=== PATIENT | female | born 1985 | race Hispanic/Latino ===

== ENCOUNTER 2022-07-25 07:20 | Inpatient (IN) | payer BC ==
[2022-07-11 16:50] VITALS: BP 111/64
[~2022-07-25] VITALS: Ht 167.6 cm; Wt 75.5 kg
--- NOTE | ~2022-07-25 | OR ---
[facility] [address] [place], [place] [address] Draft DATE OF OPERATION: 07/25/2022 SURGEON: Hiwot Cowan MD MIND READER: Chandler Benson MD. PREOPERATIVE DIAGNOSES: Eighteen week , large right ovarian mass, probable dermoid. POSTOPERATIVE DIAGNOSIS: Eighteen week , large right ovarian mass, probable dermoid. PROCEDURE: Laparotomy with right salpingo-oophorectomy. ANESTHESIA: General ET. ESTIMATED BLOOD LOSS: 25 mL. DRAINS: Cooper catheter. INDICATIONS AND FINDINGS: The patient is a 37-year-old female was noted to have a very large right ovarian tumor at her 1st OB visit. This measured approximately 20 cm and was consistent with a dermoid. Because of the size of the mass, it was felt advisable to remove this during the . A 2nd trimester was felt to be the best time for removal. At the time of surgery, the mass was palpable abdominally and was at the umbilicus on the patient's right side. The uterus was pushed off to the left and otherwise appeared normal. The ovary was quite large and irregular in shape, but smooth over the surface. It did extend into the cul-de-sac. The patient's left ovary appeared somewhat multi cystic with a few adhesions of the omentum to this area, but otherwise appeared normal. It was not disturbed. DESCRIPTION OF PROCEDURE: The patient was prepped and draped in the supine position. A midline incision was made from the pubic symphysis to just above the umbilicus. The subcu was divided with the PATIENT NAME: GEORGE HURTADO OPERATIVE REPORT DATE OF : 85 REPORT #: [id number] PHYSICIAN: HIWOT COWAN MD PCP: NO PRIMARY CARE PHYSICIAN REPORT IS CONFIDENTIAL AND NOT TO BE RELEASED WITHOUT AUTHORIZATION [facility] [address] [place], [place] [address] Draft cautery to the fascia. The fascial incision was extended vertically. The muscles were already and the peritoneum was identified and entered and the incision extended superiorly and inferiorly. Following this, the mass could be identified, but it could not be elevated out of the pelvis easily. The peritoneum overlying the ovary was incised. This was part of the broad ligament, which allowed some freedom. The infundibulopelvic ligament was identified and isolated. It was grasped with curved Z clamps x2 and divided. A free tie of 0 Vicryl followed by suture ligature, 0 Vicryl was then placed on the infundibulopelvic ligament. This allowed more freedom of movement on the lateral aspect of the ovary. The utero-ovarian pedicle was also identified. It was very large with a quite large vessels. The free area was identified and it was triply clamped with curved Z clamps. Each of these were free tied followed by suture ligatures to assure hemostasis, giving the large amount of vessels. Following this, the ovary could be elevated out of the pelvis and the ovary could be removed, as there appeared to only just be a small amount of filmy broad ligament, keeping it in place. This was divided and a free tie of 0 Vicryl was placed. The specimen was then excised. There was a defect on the pelvic sidewall and this was observed and there was some light bleeding. This was controlled with cautery superficially. The abdomen was irrigated and inspected and good hemostasis was noted. The ureter was identified easily on the patient's right side and was clear of the surgical site. There was no bleeding on the uterine side. Everything was done to avoid too much manipulation of the uterus to avoid disturbing the . Following this, the peritoneum was identified and was closed with a running suture of 3-0 Vicryl. The fascia was closed from each end to the midline with a running suture of 0 PDS. The subcu was irrigated and bleeding points controlled with cautery. The skin edges were reapproximated with interrupted sutures of 3-0 Vicryl. The skin was closed with adali. All sponge and needle counts were correct. She tolerated procedure very well and was taken to the recovery room in good condition. Hiwot Cowan MD PJW/MODL /[id number] cc: Chandler Benson MD Copies: CHANDLER BENSON MD PATIENT NAME: GEORGE HURTADO OPERATIVE REPORT DATE OF : 85 REPORT #: [id number] PHYSICIAN: HIWOT COWAN MD PCP: NO PRIMARY CARE PHYSICIAN REPORT IS CONFIDENTIAL AND NOT TO BE RELEASED WITHOUT AUTHORIZATION [address] [address] Draft ~ PATIENT NAME: GEORGE HURTADO OPERATIVE REPORT DATE OF : 85 REPORT #: [id number] PHYSICIAN: HIWOT COWAN MD PCP: NO PRIMARY CARE PHYSICIAN REPORT IS CONFIDENTIAL AND NOT TO BE RELEASED WITHOUT AUTHORIZATION
[2022-07-25 07:44] VITALS: BP 116/65
--- NOTE | 2022-07-25 08:44 | NUR ---
0800: FHT'S AUDIBLE 140'S WITH DOPPLER
--- NOTE | 2022-07-25 14:13 | NUR ---
07/25/22 1413 Jada Allen 1407-PATIENT ARRIVED TO PACU ON 6L MASK RR EVEN NONAROUSABLE. MID LINE INCISION CDI. SR. IVF INFUSING.
--- NOTE | 2022-07-25 23:07 | NUR ---
Pt called nurse's station for beeping IV pump, New bag of LR hung. Pt resting in bed, states no further needs at this time.
--- NOTE | 2022-07-26 07:50 | PR ---
[facility] [address] [place] [address] Signed AP Progress Notes Datetime Report Generated by CPN: 07/26/2022 07:50 Chief Complaint: Very little discomfort. Denies nausea. Reports flatus. Reports GFM. Denies contractions, bleeding. PHYSICAL EXAM: [id number] General: Normal Cardiovascular: Normal Respiratory: Normal Abdomen: Abnormal Extremities: Normal Physical Exam Comments: Abdomen with active BS, fundus soft, nontender. Incision clean and intact. H/H 10.6/32.3, WBC 15.1, plat 184k Impression: 37 yo female who is doing well following lap for RSO. No evidence of labor. Plan: Increase ambulation Shower Stop IV fluids VITAL SIGNS: [id number] EXAM: [id number] MEMBRANES: [id number] FETUS A: [id number] FETUS B: [id number] PROGRESS NOTES: [id number] Signing Physician: Hiwot Cowan MD Copies: ~ *Electronically Signed* 07/26/22 0750 HIWOT COWAN MD PATIENT NAME: GEORGE HURTADO PROGRESS NOTE DATE OF : 85 PHYSICIAN: HIWOT COWAN MD RPT #: [id number] REPORT IS CONFIDENTIAL AND NOT TO BE RELEASED WITHOUT AUTHORIZATION
--- NOTE | 2022-07-27 08:14 | PR ---
[facility] [address] [place], [place] [address] Signed AP Progress Notes Datetime Report Generated by CPN: 07/27/2022 08:14 Chief Complaint: Pain manageable so far. Has been up and showered last pm and voiding well. She has passed gas but no BM yet. PHYSICAL EXAM: [id number] General: Normal Cardiovascular: Normal Respiratory: Normal Abdomen: Normal Extremities: Normal Physical Exam Comments: Abdomen with active BS. Uterus soft, nontender. Incision clean and intact. Impression: Doing well. She is ready for D/C. Plan: D/C home Lt activity Call for worsening pain, temp >100.5, vag bleeding/cramping Meds: Tylenol 1000 mg q 8 hr, Oxycodone 5 mg #12, Sennakot S #50 Staple removal Mon VITAL SIGNS: [id number] EXAM: [id number] MEMBRANES: [id number] FETUS A: [id number] FETUS B: [id number] PROGRESS NOTES: [id number] Signing Physician: Hiwot Cowan MD Copies: ~ *Electronically Signed* 07/27/22813 HIWOT COWAN MD PATIENT NAME: GEORGE HURTADO PROGRESS NOTE DATE OF : 85 PHYSICIAN: HIWOT COWAN MD RPT #: [id number] REPORT IS CONFIDENTIAL AND NOT TO BE RELEASED WITHOUT AUTHORIZATION
--- NOTE | 2022-07-27 09:11 | NUR ---
MORNING ASSESSMENT COMPLETED AND VS OBTAINED. DR MCCONNELL AT BEDSIDE AT 0800 ASSESSING PT AND DISCUSSING DISCHARGE. PT DENIES NEEDS. SEE [facility] FOR FURTHER NOTES.
[2022-07-27 10:11] VITALS: BP 107/60
--- NOTE | 2022-07-27 18:02 | PATH ---
[facility] [address] [facility] [place], [place] [address] Signed SPECIMEN(S): A RIGHT OVARY AND TUMOR SPECIMEN SOURCE: A. RIGHT OVARY AND TUMOR CLINICAL HISTORY: Neoplasm of right ovary. Probable teratoma. Patient is 20 weeks gestation. 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 - Fallopian tube within normal limits. TWK:[facility]:C2NR MICROSCOPIC EXAMINATION: Histologic sections of all submitted blocks are examined by light microscopy. These findings, together with the gross examination, support the pathologic diagnosis. GROSS DESCRIPTION: The specimen, labeled and designated "Hever Lanier," and designated on the requisition "right ovary and tumor," is received in formalin and consists of an intact cystic ovary (1322 g, 32.2 x 10.4 x 9.1 cm) with attached fimbriated fallopian tube segment (8.4 cm in length x 0.8 cm in diameter). The fallopian tube is serially sectioned to reveal a mccartney-pink, soft cut surface. The fimbria are submitted entirely. The ovary is inked blue and opened to reveal yellow-mccartney grumous material, yellow-mccartney fatty tissue, mccartney-pink soft tissue, blonde and brown hair, red-brown soft tissue, fragments of bone and 12 teeth. General Production Manager sections are submitted. Cassette Summary: (A1) Fallopian tube (A2-A6) Ovary/cyst AC (under the direct supervision of a pathologist) The Gross Description was prepared using a voice recognition system. The report was reviewed for accuracy; however, sound-alike word errors, addition and/or deletions may occur. If there is any question about this report, please contact Client Services. PERFORMING LABORATORY: PATIENT NAME: GEORGE LANIER PATHOLOGY DATE OF : 85 REPORT #: [id number] PHYSICIAN: [facility] PCP: NO PRIMARY CARE PHYSICIAN REPORT IS CONFIDENTIAL AND NOT TO BE RELEASED WITHOUT AUTHORIZATION [facility] [address] [facility] [place], [place] [address] Signed The technical component was performed by [facility], [address] [place] [address] (CLIA# [id number]). The professional interpretation was performed by [facility], [facility], [address] [place] [id number] (CLIA#: [id number]). Diagnostician: Lawrence Lott MD Pathologist Electronically Signed 07/27/2022 Copies: ~ PATIENT NAME: GEORGE LANIER PATHOLOGY DATE OF : 85 REPORT #: [id number] PHYSICIAN: [facility] PCP: NO PRIMARY CARE PHYSICIAN REPORT IS CONFIDENTIAL AND NOT TO BE RELEASED WITHOUT AUTHORIZATION
== END 2022-07-27 09:45 | disposition home or self-care (01) | DRG 819 ==
LOC: DS 07:20 → EDSTATUS 09:30 → FBC 13:10 → DS 14:17 → FBC 14:17
PROVIDERS: ADMIT Obstetrics & Gynecology; ATTEND Obstetrics & Gynecology
PROC: 0UT00ZZ Resection of Right Ovary, Open Approach (ICD-10-PCS; 2022-07-25)
PROC: 0UT50ZZ Resection of Right Fallopian Tube, Open Approach (ICD-10-PCS; principal; 2022-07-25 09:30)
DX: O34.82 Maternal care for other abnormalities of pelvic organs, second trimester (principal); D27.0 Benign neoplasm of right ovary; Z3A.18 18 weeks gestation of pregnancy
CPT/HCPCS: 00840; 36415; 76942; 85025; A9270; J0131; J0690; J1100; J1644; J2001; J2300; J2405; J2704; J2765; J2795; J7121

== ENCOUNTER 2022-12-05 11:15 | Inpatient (IN) | payer BC ==
[~2022-12-05] VITALS: Ht 165.1 cm; Wt 92.1 kg
--- OUTSIDE RECORDS SUMMARY | ~2022-12-05 | XMS | Continuity of Care Document ---
Demographics + + + | Address | [address] | | | [place] [address] | + + + | Preferred Language | Unknown | + + + | Marital Status | | + + + | Pentecostal Affiliation | Unknown | + + + | Race | Unknown | + + + | Ethnic Group | Not or | + + + Author + + + | Author | [facility] | + + + | Organization | [facility] | + + + | Address | [address] | | | [place] [address] | + + + | Phone | | + + + Care Team Providers + + + + | Care Sustainable Development Policy Analyst Name | Role | Phone | + + + + Unavailable | Unavailable | + + + + Unavailable | Unavailable | + + + + Unavailable | Unavailable | + + + + Allergies and Intolerances + + + + + + | date | description | facility | reaction | severity | + + + + + + | (no date) | No Known | [facility] | (no reaction) | (no severity) | | | Allergies | | | | + + + + + + Encounters No information. Functional Status No information. Immunizations No information. Medications No information. Problems + + + + | date | description | facility | + + + + | 2022-05-14 16:56 | ENCNTR FOR SUPRVSN OF | [facility] | | | NORMAL FIRST PREG, FIRST | | | | TRIMESTER | | + + + + | 2022-05-14 16:56 | LESS THAN 8 WEEKS | [facility] | | | GESTATION OF | | + + + + | 2022-07-11 16:33 | BENIGN NEOPLASM OF RIGHT | [facility] | | | OVARY | | + + + + | 2022-07-11 16:33 | ENCOUNTER FOR | [facility] | | | PREPROCEDURAL LABORATORY | | | | EXAMINATION | | + + + + | 2022-07-17 13:03 | BENIGN NEOPLASM OF RIGHT | [facility] | | | OVARY | | + + + + | 2022-07-17 13:03 | SUPERVISION OF OTHER HIGH | [facility] | | | RISK PREGNANCIES, SECOND | | | | TRIMESTER | | + + + + | 2022-07-17 13:03 | SUPERVISION OF OTHER HIGH | [facility] | | | RISK PREGNANCI | | + + + + | 2022-07-17 13:03 | 18 WEEKS GESTATION OF | [facility] | | | | | + + + + | 2022-07-25 14:17 | BENIGN NEOPLASM OF RIGHT | [facility] | | | OVARY | | + + + + | 2022-07-25 14:17 | MATERNAL CARE FOR OTH | [facility] | | | ABNLT OF PELVIC ORGANS, | | | | SECO | | + + + + | 2022-07-25 14:17 | 18 WEEKS GESTATION OF | [facility] | | | | | + + + + | 2022-07-27 00:00 | Status post unilateral | [facility] | | | salpingo-oophorectomy | | + + + + | 2022-08-08 11:52 | BENIGN NEOPLASM OF RIGHT | [facility] | | | OVARY | | + + + + | 2022-08-08 11:52 | SUPERVISION OF OTHER HIGH | [facility] | | | RISK PREGNANCIES, UNSP T | | + + + + | 2022-08-08 11:52 | MATERNAL CARE FOR OTH | [facility] | | | ABNLT OF PELVIC ORGANS, | | | | UNSP TRIMESTER | | + + + + Procedures + + + + | date | description | facility | + + + + | 2022-07-25 00:00 | Laparotomy | [facility] | + + + + | 2022-07-25 00:00 | Laparotomy | [facility] | + + + + Results/Labs +--------+--------+ +---------+--------+---------+ | test | date | facility | value | unit | notes | +--------+--------+ +---------+--------+---------+ + + | Result panel 1 | + + + + + +-------+---------+ + | | 2022-07-11 | [facility] | 111 | mg/dL | (missing) | | (unavailable | [facility] | | | + + + +-------+---------+ + + + | Result panel 2 | + + + + + +--------+ + + | | 2022-07-11 | [facility] | 14.3 | (missing) | (missing) | | (unavailable [facility] | | | | + + + +--------+ + + + + | Result panel 3 | + + + + + +-------+---------+ + | | 2022-07-11 | [facility] | 8.5 | mg/dL | (missing) | | (unavailable | [facility] | | | | + + + +-------+---------+ + + + | Result panel 4 | + + + + + +-------+ + + | | 2022-07-11 | [facility] | 7.0 | (missing) | (missing) | | (unavailable | [facility] | | | | + + + +-------+ + + + + | Result panel 5 | + + + + + +-------+ + + | | 2022-07-11 | [facility] | 3.1 | (missing) | (missing) | | (unavailable [facility] | | | | + + + +-------+ + + + + | Result panel 6 | + + + + + +-------+ + + | | 2022-07-11 | [facility] | 3.9 | (missing) | (missing) | | (unavailable | [facility] | | | | + + + +-------+ + + + + | Result panel 7 | + + + + + +--------+ + + | | 2022-07-11 | [facility] | 0.79 | (missing) | (missing) | | (unavailable | [facility] | | | | + + + +--------+ + + + + | Result panel 8 | + + + + + +-------+ + + | | 2022-07-11 | [facility] | 0.1 | (missing) | (missing) | | (unavailable | [facility] | | | | + + + +-------+ + + + + | Result panel 9 | + + + + + +------+ + + | | 2022-07-11 | [facility] | 16 | (missing) | (missing) | | (unavailable | [facility] | | | | + + + +------+ + + + + | Result panel 10 | + + + + + +------+ + + | | 2022-07-11 | [facility] | 15 | (missing) | (missing) | | (unavailable | [facility] | | | | + + + +------+ + + + + | Result panel 11 | + + + + + +------+ + + | | 2022-07-11 | [facility] | 44 | (missing) | (missing) | | (unavailable | [facility] | | | | + + + +------+ + + + + | Result panel 12 | + + + + + +------+---------+ + | | 2022-07-11 | [facility] | 16 | mg/dL | (missing) | | (unavailable | [facility] | | | | + + + +------+---------+ + + + | Result panel 13 | + + + + + +--------+---------+ + | | 2022-07-11 | [facility] | 0.61 | mg/dL | (missing) | | (unavailable | [facility] | | | | + + + +--------+---------+ + + + | Result panel 14 | + + + + + +-------+ + + | | 2022-07-11 | [facility] | 118 | (missing) | (missing) | | (unavailable | [facility] | | | | + + + +-------+ + + + + | Result panel 15 | + + + + + +---------+ + + | | 2022-07-11 | [facility] | 26.22 | (missing) | (missing) | | (unavailable | [facility] | | | | + + + +---------+ + + + + | Result panel 16 | + + + + + +-------+ + + | | 2022-07-11 | [facility] | 138 | (missing) | (missing) | | (unavailable | [facility] | | | | + + + +-------+ + + + + | Result panel 17 | + + + + + +-------+ + + | | 2022-07-11 | [facility] | 3.3 | (missing) | (missing) | | (unavailable | [facility] | | | | + + + +-------+ + + + + | Result panel 18 | + + + + + +-------+ + + | | 2022-07-11 | [facility] | 103 | (missing) | (missing) | | (unavailable | [facility] | | | | + + + +-------+ + + + + | Result panel 19 | + + + + + +------+ + + | | 2022-07-11 | [facility] | 24 | (missing) | (missing) | | (unavailable | [facility] | | | | + + + +------+ + + + + | Result panel 20 | + + + + + +--------+ + + | | 2022-07-26 | [facility] | 15.1 | (missing) | (missing) | | (unavailable | [facility] | | | | + + + +--------+ + + + + | Result panel 21 | + + + + + +--------+ + + | | 2022-07-26 | [facility] | 3.86 | (missing) | (missing) | | (unavailable | [facility] | | | | + + + +--------+ + + + + | Result panel 22 | + + + + + +--------+ + + | | 2022-07-26 | [facility] | 10.6 | (missing) | (missing) | | (unavailable | [facility] | | | | + + + +--------+ + + + + | Result panel 23 | + + + + + +--------+ + + | | 2022-07-26 | [facility] | 32.3 | (missing) | (missing) | | (unavailable | [facility] | | | | + + + +--------+ + + + + | Result panel 24 | + + + + + +--------+ + + | | 2022-07-26 | [facility] | 83.6 | (missing) | (missing) | | (unavailable | [facility] | | | | + + + +--------+ + + + + | Result panel 25 | + + + + + +--------+ + + | | 2022-07-26 | [facility] | 27.4 | (missing) | (missing) | | (unavailable | [facility] | | | | + + + +--------+ + + + + | Result panel 26 | + + + + + +--------+ + + | | 2022-07-26 | [facility] | 32.7 | (missing) | (missing) | | (unavailable | [facility] | | | | + + + +--------+ + + + + | Result panel 27 | + + + + + +--------+ + + | | 2022-07-26 | [facility] | 15.0 | (missing) | (missing) | | (unavailable | [facility] | | | | + + + +--------+ + + + + | Result panel 28 | + + + + + +-------+ + + | | 2022-07-26 | [facility] | 184 | (missing) | (missing) | | (unavailable | [facility]30[facility] | | | | + + + +-------+ + + + + | Result panel 29 | + + + + + +--------+ + + | | 2022-07-26 | [facility] | 83.8 | (missing) | (missing) | | (unavailable | [facility] | | | | + + + +--------+ + + + + | Result panel 30 | + + + + + +-------+ + + | | 2022-07-26 | [facility] | 9.9 | (missing) | (missing) | | (unavailable | [facility] | | | | + + + +-------+ + + + + | Result panel 31 | + + + + + +-------+ + + | | 2022-07-26 | [facility] | 6.0 | (missing) | (missing) | | (unavailable | [facility] | | | | + + + +-------+ + + + + | Result panel 32 | + + + + + +-------+ + + | | 2022-07-26 | [facility] | 0.0 | (missing) | (missing) | | (unavailable | [facility] | | | | + + + +-------+ + + + + | Result panel 33 | + + + + + +-------+ + + | | 2022-07-26 | [facility] | 0.3 | (missing) | (missing) | | (unavailable | [facility] | | | | + + + +-------+ + + Social History + + + + | date | description | facility | + + + + | 2022-07-27 00:00 | Unknown if ever smoked | [facility] | + + + + Vital Signs + + + +---------+ | date | measurement | value | units | + + + +---------+ | 2022-07-11 00:00 | BMI | 26.8 | kg/m2 | + + + +---------+ | 2022-07-11 00:00 | height_metric | 167.64 | cm | + + + +---------+ | 2022-07-11 00:00 | height_standard | 66 | in | + + + +---------+ | 2022-07-11 00:00 | weight_metric | 75.45 | kg | + + + +---------+ | 2022-07-11 00:00 | weight_standard | 166.34 | lb | + + + +---------+ | 2022-07-25 00:00 | BP_diastolic | 53 | mmHg | + + + +---------+ | 2022-07-25 00:00 | BP_systolic | 95 | mmHg | + + + +---------+ | 2022-07-25 00:00 | heart_rate | 70 | /min | + + + +---------+ | 2022-07-25 00:00 | o2_saturation | 97 | % | + + + +---------+ | 2022-07-25 00:00 | respiration_rate | 16 | /min | + + + +---------+ | 2022-07-25 00:00 | temperature_metric | 36.28 | C | | | | | | + + + +---------+ | 2022-07-25 00:00 | | 97.3 | F | | | temperature_standar | | | | | d | | | + + + +---------+"
[2022-12-05 12:01] LABS: MARIJUANA (THC), UR NEGATIVE (NEGATIVE)
[2022-12-05 12:02] LABS: AMPHETAMINES, UR NEGATIVE (NEGATIVE); BARBITURATES, UR NEGATIVE (NEGATIVE); BENZODIAZEPINES, UR NEGATIVE (NEGATIVE); BUPRENORPHINE,UR NEGATIVE (NEGATIVE); COCAINE, UR NEGATIVE (NEGATIVE); MDMA, UR NEGATIVE (NEGATIVE); METHADONE, UR NEGATIVE (NEGATIVE); METHAMPHETAMINE, UR NEGATIVE (NEGATIVE); OPIATES, UR NEGATIVE (NEGATIVE); OXYCODONE, UR NEGATIVE (NEGATIVE); PHENCYCLIDINE, UR NEGATIVE (NEGATIVE); TRICYCLIC ANTIDEPRESSANT, UR NEGATIVE (NEGATIVE)
[2022-12-05 12:17] LABS: HEMATOCRIT 35.5 % (35.0-50.0); HEMOGLOBIN 11.5 g/dL (12.0-18.0); MCH 25.7 (27-36); MCHC 32.3 g/dl (30-36); MCV 79.6 fl (81-99); RBC 4.46 M/ul (4.3-5.7); RDW 15.3 (10.5-15.0)
[2022-12-05 13:04] LABS: ABO A; ANTIBODY SCREEN NEGATIVE; RH POSITIVE
--- NOTE | 2022-12-05 18:09 | PR ---
[facility] [address] [facility] [place], [place] [address] Signed Progress Notes IP Datetime Report Generated by CPN: 12/05/2022 18:09 PROGRESS NOTES: [id number] Impression: Reassuring Heart Rate Procedures: Sterile Vag Exam Plan: Continue Present Management VITAL SIGNS: [id number] Vital Signs: Reviewed; Within Normal Limits EXAM: [id number] Effacement: 0 Station: -3 Contractions: occ MEMBRANES: [id number] Amniotic Fluid Color: Clear Comments: Starting to feel some contractions. She has made a little change. Will continue with pitocin. FETUS A: [id number] FHR Baseline: 130 Variability: Moderate 6-25bpm Accelerations: 15X15 Decelerations: None FHR Category: Category I Presentation: Vertex FETUS B: [id number] Signing Physician: Hiwot Cowan MD Copies: ~ *Electronically Signed* 12/05/22 1809 HIWOT COWAN MD PATIENT NAME: GEORGE CAST PROGRESS NOTE DATE OF : 85 PHYSICIAN: HIWOT COWAN MD RPT #: [id number] REPORT IS CONFIDENTIAL AND NOT TO BE RELEASED WITHOUT AUTHORIZATION
--- NOTE | 2022-12-06 06:58 | PR ---
[facility] [address] [facility] [place], [place] [address] Signed Progress Notes IP Datetime Report Generated by CPN: 12/06/2022 06:58 PROGRESS NOTES: [id number] Impression: Normal Progression of Labor; Reassuring Heart Rate Procedures: Intrauterine Pressure Catheter; Sterile Vag Exam Plan: Continue Present Management VITAL SIGNS: [id number] Vital Signs: Reviewed; Within Normal Limits EXAM: [id number] Dilatation: 3.0 Effacement: 90 Station: -2 Contractions: occ MEMBRANES: [id number] Amniotic Fluid Color: Clear Comments: Progressing though slowly. status reassuring though she did have a decel almost 1 hr ago. Nothing has been seen since placement of the IUPC. There is no evidence of infection at this time. FETUS A: [id number] FHR Baseline: 130 Variability: Moderate 6-25bpm Accelerations: 15X15 Decelerations: None FHR Category: Category I Presentation: Vertex FETUS B: [id number] Signing Physician: Hiwot Cowan MD Copies: ~ *Electronically Signed* 12/06/22 0658 HIWOT COWAN MD PATIENT NAME: GEORGE CAST PROGRESS NOTE DATE OF : 85 PHYSICIAN: HIWOT COWAN MD RPT #: [id number] REPORT IS CONFIDENTIAL AND NOT TO BE RELEASED WITHOUT AUTHORIZATION
[2022-12-07 05:34] LABS: HEMOGLOBIN 9.8 g/dL (12.0-18.0)
[2022-12-07 05:36] LABS: HEMATOCRIT 30.7 % (35.0-50.0); MCH 25.6 (27-36); MCHC 31.9 g/dl (30-36); MCV 80.2 fl (81-99); RBC 3.83 M/ul (4.3-5.7); RDW 15.2 (10.5-15.0)
--- NOTE | 2022-12-07 07:28 | PR ---
[facility] [address] [facility] [place] [address] Signed PP Progress Notes Datetime Report Generated by CPN: 12/07/2022 07:28 SUBJECTIVE: [id number] Pain: Within Normal Limits Vital Signs: [id number] Vital Signs: Reviewed; Within Normal Limits Cardiovascular: Not Done Respiratory: Not Done Abdomen/Uterus: Abnormal Lochia: Normal Vulva/Perineum: Normal Breasts: Not Done CVA Tenderness: Not Done Extremities: Normal Incision: Not Applicable Progress: Normal Exam Comments: Fundus firm, NT @ U. H/H 9.8/30.7, WBC 19.1, plat 199k IMPRESSION/PLAN/PROCEDURES: [id number] Impression: Normal Progression Plan: Continue Present Management Progress Notes: Doing well. Will continue present management. Signing Physician: Hiwot Cowan MD Copies: ~ *Electronically Signed* 12/07/22727 HIWOT COWAN MD PATIENT NAME: GEORGE CAST PROGRESS NOTE DATE OF : 85 PHYSICIAN: HIWOT COWAN MD RPT #: [id number] REPORT IS CONFIDENTIAL AND NOT TO BE RELEASED WITHOUT AUTHORIZATION
--- NOTE | 2022-12-07 11:23 | NUR ---
MOM IN BED NURSING BABY. DAD IN CHAIR. AUNTIE ON COUCH. ALL REPORTED POSITIVE EXPERIENCE AT [facility]. EXPRESSED GRATITUDE AND AWARENESS OF IMPACT OF MOE-BASED PRACTICES. CONSENTED TO PRAYER. PRAYED FOR GOOD BEGINNINGS AND ONGOING BLESSING.
--- NOTE | 2022-12-08 12:20 | PR ---
[facility] [address] [address] [place] [address] Signed PP Progress Notes Datetime Report Generated by CPN: 12/08/2022 12:20 SUBJECTIVE: [id number] Pain: Within Normal Limits Vital Signs: [id number] Vital Signs: Reviewed; Within Normal Limits Cardiovascular: Not Done Respiratory: Not Done Abdomen/Uterus: Abnormal Lochia: Normal Vulva/Perineum: Not Done Breasts: Not Done CVA Tenderness: Not Done Extremities: Normal Incision: Not Applicable Progress: Normal Exam Comments: Fundus firm, NT @ U-1. IMPRESSION/PLAN/PROCEDURES: [id number] Impression: Normal Progression Plan: Discharge Procedures: None Progress Notes: Doing well. She is ready for D/C. Signing Physician: Hiwot Cowan MD Copies: ~ *Electronically Signed* 12/08/22 1220 HIWOT COWAN MD PATIENT NAME: GEORGE CAST PROGRESS NOTE DATE OF : 85 PHYSICIAN: HIWOT COWAN MD RPT #: [id number] REPORT IS CONFIDENTIAL AND NOT TO BE RELEASED WITHOUT AUTHORIZATION
--- NOTE | 2022-12-11 19:54 | PATH ---
[facility] [address], [place] [address] Signed SPECIMEN(S): A PLACENTA SPECIMEN SOURCE: A. PLACENTA CLINICAL HISTORY: Mother's age: 37. OB history: A0. Gestational age: 37.5. Infant's weight: 3415 g. score: 9, 9. Rh A+ (Rhogam yes). Maternal serologies: Rubella immune, hepatitis screen negative, GBS negative. Specific issues of concern: Premature rupture of membranes. FINAL PATHOLOGIC DIAGNOSIS: Placenta, delivery: - Hoyt placenta (442 g, 11ja32rh percentile for reported gestational age of 37.5 weeks) and membranes, with the following: - Acute chorioamnionitis (maternal inflammatory response stage 2, grade 1). - Circumvallate insertion of the membranes with pigmented macrophages, consistent with meconium. - Mild chronic deciduitis. - Several small subchorionic thrombohematomas. - Intervillous thrombus. - Threevessel umbilical cord with no significant pathologic alteration. NRT MICROSCOPIC EXAMINATION: Histologic sections of all submitted blocks are examined by light microscopy. These findings, together with the gross examination, support the pathologic diagnosis. GROSS DESCRIPTION: The specimen, labeled and designated "Anthony placenta," is received fresh and placed in formalin and consists of hoyt discoid placenta with the following parameters: Umbilical cord: Insertion paramarginal, measurement 21.0 x 1.2 cm; trivascular. Detached cord segment: 16.5 x 1.1 cm. Cord coiling index (per 10 cm): Five. Lesions: Not grossly identified. Membranes: Insertion site: Circumvallate, perkins/translucent, received disrupted. Other: Not grossly identified. Chorionic Plate: Normal radiating vascular pattern, blue-purple and shiny. Lesions: Not grossly identified. Other: Not grossly identified. PATIENT NAME: GEORGE CAST PATHOLOGY DATE OF : 85 REPORT #: [id number] PHYSICIAN: NEIDA DHILLON PCP: NO PRIMARY CARE PHYSICIAN REPORT IS CONFIDENTIAL AND NOT TO BE RELEASED WITHOUT AUTHORIZATION [facility] [address], [place] [address] Signed Maternal Surface: Perkins-brown disrupted cotyledons. Lesions: Not grossly identified. Measurement: 18.5 x 14.7 x 3.2 cm. 442 g Cut Surface: Maroon and spongy. Lesions: Not grossly identified. Basal plate fibrin 0.1 cm in thickness. Other Findings: Not grossly identified. Cassette Summary: (A1) membranes and umbilical cord (A2) placenta parenchyma (A3) placenta parenchyma (A4) placenta parenchyma AC (under the direct supervision of a pathologist) The Gross Description was prepared using a voice recognition system. The report was reviewed for accuracy; however, sound-alike word errors, addition and/or deletions may occur. If there is any question about this report, please contact Client Services. PERFORMING LABORATORY: Technical component was performed by [facility], [address] [place] [id number] (CLIA# [id number]). Professional interpretation was performed by [facility] - [facility], [address], [place] [address] (CLIA# [id number]). Diagnostician: Milka Espinal MD Pathologist Electronically Signed 12/11/2022 Copies: ~ PATIENT NAME: CASTGEORGE PATHOLOGY DATE OF : 85 REPORT #: [id number] PHYSICIAN: NEIDA PATHOLOGY PCP: NO PRIMARY CARE PHYSICIAN REPORT IS CONFIDENTIAL AND NOT TO BE RELEASED WITHOUT AUTHORIZATION
== END 2022-12-08 17:00 | disposition home or self-care (01) | DRG 807 ==
LOC: FBC 11:15 → FBCO 12-22 08:48 → EDSTATUS 12-22 11:17
PROVIDERS: ADMIT Obstetrics & Gynecology; ATTEND Obstetrics & Gynecology
PROC: 10E0XZZ Delivery of Products of Conception, External Approach (ICD-10-PCS; principal; 2022-12-06)
PROC: 0KQM0ZZ Repair Perineum Muscle, Open Approach (ICD-10-PCS; 2022-12-06)
PROC: 10H07YZ Insertion of Other Device into Products of Conception, Via Natural or Artificial Opening (ICD-10-PCS; 2022-12-06)
PROC: 00HU33Z Insertion of Infusion Device into Spinal Canal, Percutaneous Approach (ICD-10-PCS; 2022-12-06)
PROC: 3E0R3BZ Introduction of Anesthetic Agent into Spinal Canal, Percutaneous Approach (ICD-10-PCS; 2022-12-06)
DX: O42.02 Full-term premature rupture of membranes, onset of labor within 24 hours of rupture (principal); Z37.0 Single live birth; O70.1 Second degree perineal laceration during delivery; O76 Abnormality in fetal heart rate and rhythm complicating labor and delivery; Z3A.37 37 weeks gestation of pregnancy; Z67.10 Type A blood, Rh positive
CPT/HCPCS: 01960; 36415; 85027; 86850; 86900; 86901; J2210; J2405; J2590; J2795; J7121